=== PATIENT | female | born 1995 | race Caucasian/White ===

== ENCOUNTER 2024-05-20 17:13 | Emergency (ER) | payer SELFPAY ==
[2024-05-20 17:24] VITALS: BP 111/78; PULSE 65; RESP 18; TEMP 97.2; BMI 20.3
[2024-05-20] MEDS ORDERED: diphenhydrAMINE HCL 25 MG CAPSULE (FP) PO ONE (17:43)
[2024-05-20] MEDS: diphenhydrAMINE HCL 25 MG CAPSULE (FP) PO ONE (17:44)
[2024-05-20 18:12] LABS: HCG,QUALITATIVE URINE NEGATIVE
== END 2024-05-20 20:01 | disposition home or self-care (01) ==
LOC: FER 17:13
DX: N83.202 Unspecified ovarian cyst, left side (principal); R10.2 Pelvic and perineal pain
CPT/HCPCS: 76830-TC; 81003; 81015; 84703; 99284-25